=== PATIENT | male | born 1965 ===

== ENCOUNTER → 2020-07-21 10:26 | Outpatient (REF) | payer OTHER, SELFPAY | LOC: ANHLAB 10:26 | PROVIDERS: PCP Physician Assistant; Visit Provider Nurse Practitioner | DX: L57.0 Actinic keratosis (principal) | CPT/HCPCS: 88305 ==

== ENCOUNTER → 2020-08-24 08:50 | Outpatient (REF) | payer OTHER, SELFPAY | LOC: ANHLAB 08:50 | PROVIDERS: PCP Physician Assistant; Visit Provider Nurse Practitioner | DX: C44.329 Squamous cell carcinoma of skin of other parts of face (principal) | CPT/HCPCS: 88305; 88331; 88332 ==